=== PATIENT | male | born 1950 | race Hispanic/Latino ===

== ENCOUNTER 2018-10-03 11:35 | Day surgery (SDC) | payer MEDICARE ==
[~2018-10-03 11:35] MED LIST: ANCEF/STERILE WATER 2 GM/20 ML IV NR; HEPARIN SUB-Q NR
[2018-10-03] MEDS ORDERED: LACTATED RINGERS 1,000 ML IV SCH (12:00)
[2018-10-03] MEDS ORDERED: ZEMURON IV ONE (12:37)
[2018-10-03] MEDS ORDERED: XYLOCAINE MPF 2% ONE (12:37)
[2018-10-03] MEDS ORDERED: DIPRIVAN 10 MG/ML IV ONE (12:38)
[2018-10-03] MEDS ORDERED: SUBLIMAZE ONE (12:38)
[2018-10-03] MEDS ORDERED: VERSED IV NR (13:00)
[2018-10-03] MEDS ORDERED: DILAUDID IV PRN (13:10)
--- NOTE | 2018-10-03 13:14 | Anesthesia Consultation ---
Anesthesia Consult and Med Hx Date of service: 10/03/18 - Airway Anesthetic Teeth Evaluation: Good ROM Head & Neck: Adequate Mental/Hyoid Distance: Adequate Mallampati Class: Class II Intubation Access Assessment: Probably Good - Pulmonary Exam CTA: Yes - Cardiac Exam Cardiac Exam: RRR - Pre-Operative Health Status ASA Pre-Surgery Classification: ASA3 Proposed Anesthetic Plan: General - Pulmonary Hx Smoking: Yes (HX 1 PPD - NOW ONLY CIGARS) Hx Asthma: No Hx Respiratory Symptoms: No (no recent cough or flu-like symptoms) COPD: No Hx Sleep Apnea: No (RANJIT PRE SCREEN HIGH RISK) - Cardiovascular System Hx Hypertension: No Hx Heart Attack/AMI: No Hx Percutaneous Transluminal Coronary Angioplasty (PTCA): No - Central Nervous System Hx Seizures: No CVA: No - Gastrointestinal Hx Gastroesophageal Reflux Disease: Yes (asymptomatic today) - Endocrine Hx Renal Disease: No Hx Liver Disease: No Hx Insulin Dependent Diabetes: No Hx Non-Insulin Dependent Diabetes: No Hx Thyroid Disease: No - Other Systems Hx Alcohol Use: Yes (2-3 DRINKS PER DAY) Hx Obesity: No - Additional Comments Anesthesia Medical History Comments: No hx anesthetic complications. Off ASA x 5 days.
--- NOTE | 2018-10-03 13:15 | Anesthesia Day of Surgery ---
Anesthesia Day of Surgery - Day of Surgery Patient Examined: Yes Patient H&P Reviewed: Yes Patient is NPO: Yes
[2018-10-03] MEDS ORDERED: MARCAINE-EPI 0.25%-1:200,000 INFILTRATI ONE ×2 (15:02→15:16)
[2018-10-03] MEDS ORDERED: BLOXIVERZ ONE (16:08)
[2018-10-03] MEDS ORDERED: DECADRON ONE (16:08)
[2018-10-03] MEDS ORDERED: ROBINUL ONE ×2 (16:08)
[2018-10-03] MEDS ORDERED: ZOFRAN ONE (16:08)
--- NOTE | 2018-10-03 16:34 | Post Operative Note ---
Pre-op diagnosis: Left inguinal hernia Post-op diagnosis: same Anesthesia: GETA Surgeon: ANGELICA GANDHI Estimated blood loss: minimal Pathology: none Condition: stable Disposition: PACU
[2018-10-03] MEDS ORDERED: NORCO 5/325 ONE (16:54)
--- NOTE | 2018-10-03 17:12 | Post Anesthesia Evaluation ---
- Post Anesthesia Evaluation Patient Participated: Yes Airway Patent: Yes Stable Respiratory Function: Yes Nausea/Vomiting: No Temp > 96.8F: Yes Pain Manageable: Yes Adequeate Hydration: Yes Anesthesia Complications: No Block Receding Appropriately: Not Applicable
[2018-10-03 18:19] VITALS: BP 116/62
--- NOTE | 2018-10-04 12:21 | Operative Report ---
PREOPERATIVE DIAGNOSIS: Left inguinal hernia. POSTOPERATIVE DIAGNOSIS: Left direct inguinal hernia, incarcerated. PROCEDURE: Laparoscopic hernia repair, transabdominal approach. ANESTHESIA: General endotracheal. ATTENDING: Dr. Haas. ESTIMATED BLOOD LOSS: Less than 25 mL. SPECIMENS: No specimens taken. COMPLICATIONS: No complications expected. INDICATIONS: The patient is a 68-year-old male patient who has a left inguinal hernia, has been symptomatic for several years, now the patient would like this repaired. PROCEDURE IN DETAIL: The patient was taken back to the OR where he was placed supine on the operating room table. Bilateral lower extremity compression devices were placed and a dose of preoperative antibiotics was given. A timeout was taken to verify the correct patient and correct procedure at the correct site after sterile draping and prepping of the area. At this point, we made an incision in the supraumbilical region. This was carried down through the skin and subcutaneous tissue, and a Veress needle was inserted into the abdomen. The abdomen was insufflated to 50 mmHg and following this, a trocar was inserted with the Optiview technique. Trocar site 10 mm trocar. Once inside the abdomen, the abdomen was explored with a scope and a left inguinal hernia was identified with colon stuck into the hernia. Additional were placed just lateral to the rectus muscle on both sides. These were done under direct visualization, both of them 5 mm in diameter. Once this had been done, we proceeded to reduce the hernia with the help of atraumatic graspers. Once the hernia was reduced, we verified the viability of the contents of the hernia, which appeared to be well perfused . We then proceeded to raise a flap of the peritoneal layer. This was done with an aid of EndoShears and grasper. Once this had been done, we proceeded to develop dissection plane laterally and medially, medially all the way down to Moreno's ligament and through the symphysis pubis laterally all the way to the psoas muscle. This was done being careful not to injure any of the nerves and to preserve the spermatic cord and the vas deferens as well as the gonadal vessels. Hernia sac was identified to be going into the direct space. Hernia sac was grasped and reduced into the peritoneal cavity leaving inferior wall defect. We proceeded to remove anything in the defect contents including a small lipoma and placed it back intraperitoneally at this point and once the entirety of the dissection was carried out, we then were ready to place an intraperitoneal mesh. Bard soft mesh was selected, 4 x 6 in dimensions. This was placed through the 10 mm trocar placed inside the dissection space. Once the mesh was placed symphysis pubis and Moreno's ligament and to the anterior abdominal wall, covering in its entirety the aforementioned defect. Another tack was placed laterally to ensure proper position of the mesh. At this point, we proceeded to reperitonealize the anterior abdominal wall and patch were placed to close the flap that had been created. Once this had been done, we proceeded to desufflate the abdomen under direct visualization and removed the trocars under direct visualization. We then proceeded to close the 10 mm port defect with a 0 Vicryl suture, closure of the skin with 4-0 Vicryl suture and dermal adhesive. The patient tolerated the procedure well and was sent to the PACU unit in stable condition. JOB# [id number] BRYAN/NORMAN
== END 2018-10-03 11:36 | disposition home or self-care (01) ==
LOC: OR 11:35
PROVIDERS: ATTEND Surgery
DX: K40.30 Unilateral inguinal hernia, with obstruction, without gangrene, not specified as recurrent (principal); G43.909 Migraine, unspecified, not intractable, without status migrainosus; K21.9 Gastro-esophageal reflux disease without esophagitis; E78.00 Pure hypercholesterolemia, unspecified; F41.9 Anxiety disorder, unspecified; F32.9 Major depressive disorder, single episode, unspecified; F17.210 Nicotine dependence, cigarettes, uncomplicated; Z79.82 Long term (current) use of aspirin; Z79.899 Other long term (current) drug therapy; Z72.89 Other problems related to lifestyle; Z98.890 Other specified postprocedural states
CPT/HCPCS: 49650; C1781; J0690; J1100; J1170; J1644; J2250; J2405; J2704; J2710; J3010; J7120

== ENCOUNTER 2018-10-04 10:08 | Emergency (ER) | payer MEDICARE ==
--- NOTE | 2018-10-04 10:38 | Emergency Department Report ---
ED Male HPI - General Chief complaint: Urogenital-Male Stated complaint: NEED CATHETER/PAIN Time Seen by Provider: 10/04/18 10:32 Source: patient Mode of arrival: Ambulatory Limitations: No Limitations - History of Present Illness Initial comments: 68-year-old male status post hernia repair surgery on yesterday presents the ED with inability to urinate. Patient has not urinated since yesterday. No history of urinary retention in the past. MD Complaint: other (urinary retention) -: days(s) (1) Severity: severe Quality: aching Consistency: constant Improves with: none Worsens with: none denies other symptoms - Related Data Home Medications Medication Instructions Recorded Confirmed Last Taken Ascorbic Acid [Vitamin C] 1,000 mg PO DAILY 09/27/18 09/27/18 10/02/18 Aspirin [Aspir-Low] 81 mg PO DAILY 09/27/18 10/03/18 5 Days Ago ~09/28/18 Cholecalciferol Vit D3 [Vitamin D3] 1,000 unit PO QDAY 09/27/18 09/27/18 10/02/18 Fenofibrate 80 mg PO DAILY 09/27/18 09/27/18 10/02/18 Multivit-Mins/Iron/Folic/Lycop 1 each PO DAILY 09/27/18 09/27/18 10/02/18 [Centrum Men's Tablet] LORazepam [Ativan] 0.25 mg PO PRN PRN 10/03/18 10/03/18 10/02/18 Previous Rx's Medication Instructions Recorded Last Taken Type HYDROcodone/APAP 5-325 [[place] 1 each PO Q4HR PRN #30 tablet 10/03/18 Unknown Rx 5/325] Allergies Allergy/AdvReac Type Severity Reaction Status Date / Time No Known Allergies Allergy Verified 09/27/18 12:14 ED Review of Systems ROS: Stated complaint: NEED CATHETER/PAIN Other details as noted in HPI Comment: All other systems reviewed and negative Constitutional: denies: chills, fever Gastrointestinal: denies: nausea, vomiting Genitourinary: other (reports urinary retention) ED Past Medical Hx - Past Medical History Hx Hypertension: No Hx Heart Attack/AMI: No Hx GERD: Yes (OCC) Hx Liver Disease: No Hx Renal Disease: No Hx Headaches / Migraines: Yes (MIGRAINES - NOT RECENT) Hx Seizures: No Hx Asthma: No Hx COPD: No Hx HIV: No - Social History Smoking Status: Current Some Day Smoker Substance Use Type: None - Medications Home Medications: Home Medications Medication Instructions Recorded Confirmed Last Taken Type Ascorbic Acid [Vitamin C] 1,000 mg PO DAILY 09/27/18 09/27/18 10/02/18 History Aspirin [Aspir-Low] 81 mg PO DAILY 09/27/18 10/03/18 5 Days Ago History ~09/28/18 Cholecalciferol Vit D3 [Vitamin D3] 1,000 unit PO QDAY 09/27/18 09/27/18 10/02/18 History Fenofibrate 80 mg PO DAILY 09/27/18 09/27/18 10/02/18 History Multivit-Mins/Iron/Folic/Lycop 1 each PO DAILY 09/27/18 09/27/18 10/02/18 History [Centrum Men's Tablet] HYDROcodone/APAP 5-325 [[place] 1 each PO Q4HR PRN #30 tablet 10/03/18 Unknown Rx 5/325] LORazepam [Ativan] 0.25 mg PO PRN PRN 10/03/18 10/03/18 10/02/18 History ED Physical Exam - General Limitations: No Limitations General appearance: alert, in no apparent distress - Head Head exam: Present: atraumatic, normocephalic - Eye Eye exam: Present: normal appearance - ENT ENT exam: Present: mucous membranes moist - Neck Neck exam: Present: normal inspection - Respiratory Respiratory exam: Present: normal lung sounds bilaterally. Absent: respiratory distress - Cardiovascular Cardiovascular Exam: Present: regular rate, normal rhythm - GI/Abdominal GI/Abdominal exam: Present: other (bladder distended, tender to palpation) - Extremities Exam Extremities exam: Present: normal inspection - Neurological Exam Neurological exam: Present: alert, oriented X3 - Psychiatric Psychiatric exam: Present: normal affect, normal mood - Skin Skin exam: Present: warm, dry, intact, normal color ED Course Vital Signs 10/04/18 10/04/18 10:18 10:52 Temperature 98.7 F Pulse Rate 93 H Respiratory 16 17 Rate Blood Pressure 112/59 O2 Sat by Pulse 98 Oximetry ED Medical Decision Making - Medical Decision Making 400 cc out in Joy[place]. Pt changed to leg bag. Will d/c at this time. States has appt w/ his surgeon Dr Haas in 2 days. Will also give info for urology f/u. - Differential Diagnosis urinary retention Critical care attestation.: If time is entered above; I have spent that time in minutes in the direct care of this critically ill patient, excluding procedure time. ED Disposition Clinical Impression: Urinary retention Disposition: DC- TO HOME OR SELFCARE Is pt being admited?: No Condition: Stable Instructions: Urinary Leg Bag (GEN), Joyner Catheter Placement and Care (ED), Urinary Retention in Men (ED) Referrals: ALEKSANDR EDEN MD [Staff Physician] - 2-3 Days PRIMARY CARE, [Primary Care Provider] - 3-5 Days Time of Disposition: 11:13
== END 2018-10-04 11:32 | disposition home or self-care (01) ==
LOC: ED 10:08
CPT/HCPCS: 51702; 99281

== ENCOUNTER 2021-03-03 10:46 | Emergency (ER) | payer SELFPAY ==
[2021-03-03 10:58] VITALS: BP 135/70
--- NOTE | 2021-03-06 19:03 | Electrocardiograph Report ---
[facility] Test Date: 2021-03-03 Test Time: 11:02:43 Pat Name: DAMASO HUERTA Department: Room: Gender: M [employer] Supervisor: ASHVIN : 1950 Requested By: SHILO VILLA Order Number: [id number] Reading MD: Patel Dotson Measurements Intervals [place] Rate: 97 P: 53 [place]: 184 QRS: -41 QRSD: 86 T: 41 QT: 381 QTc: 484 Interpretive Statements Sinus rhythm Left axis deviation Low voltage, precordial leads No previous ECG available for comparison Electronically Signed On 03-06-2021 19:03:26 EDT by Patel Dotson
== END 2021-03-03 15:55 ==
LOC: ED 10:46
DX: R07.89 Other chest pain (principal); Z53.21 Procedure and treatment not carried out due to patient leaving prior to being seen by health care provider
CPT/HCPCS: 93005